=== PATIENT | female | born 1950 | race African-American/Black ===

== ENCOUNTER 2017-11-11 08:56 | Emergency (ER) | payer MEDICARE, MEDICAID ==
[~2017-11-11] VITALS: Ht 165.1 cm; Wt 122.5 kg
[~2017-11-11 08:56] MED LIST: ALL300T PO; ASPI81CH43; CAR3125T PO; CARI-316 PO; CARV6.2551; CLO01T PO; CLON0.1T; DIPH50LI PO; FERR325T83 PO; GLIM1TAB2 PO; INSUPOW; LEVO25TA9 PO; LIS5T PO; METF-370 PO
[2017-11-11] MEDS ORDERED: KETOROLAC TROMETH 60MG/2ML VIAL IM ONE (10:15)
[2017-11-11 13:00] VITALS: BP 153/95
== END 2017-11-11 12:59 | disposition home or self-care (01) ==
LOC: ER 08:58
DX: N28.1 Cyst of kidney, acquired (principal); M10.9 Gout, unspecified; I11.0 Hypertensive heart disease with heart failure; I50.9 Heart failure, unspecified; J45.909 Unspecified asthma, uncomplicated; E11.9 Type 2 diabetes mellitus without complications; E78.5 Hyperlipidemia, unspecified; Z90.49 Acquired absence of other specified parts of digestive tract; Z90.710 Acquired absence of both cervix and uterus; Z98.51 Tubal ligation status; Z79.4 Long term (current) use of insulin; Z79.82 Long term (current) use of aspirin; Z96.653 Presence of artificial knee joint, bilateral
CPT/HCPCS: 74176; 96372; 99284; J1885

== ENCOUNTER 2018-02-27 18:02 | Emergency (ER) | payer MEDICARE, MEDICAID ==
[~2018-02-27] VITALS: Ht 165.1 cm; Wt 122.5 kg
[2018-02-27 18:45] VITALS: BP 111/80
[2018-02-27] MEDS ORDERED: HYDROcodone-ACET 10/325MG TAB PO ONE (19:15)
== END 2018-02-27 19:49 | disposition home or self-care (01) ==
LOC: ER 18:09
DX: M25.561 Pain in right knee (principal); M25.532 Pain in left wrist; M25.531 Pain in right wrist; G89.29 Other chronic pain; I11.0 Hypertensive heart disease with heart failure; I50.9 Heart failure, unspecified; J45.909 Unspecified asthma, uncomplicated; E11.9 Type 2 diabetes mellitus without complications; E78.5 Hyperlipidemia, unspecified; Z90.710 Acquired absence of both cervix and uterus; Z98.51 Tubal ligation status; Z90.49 Acquired absence of other specified parts of digestive tract; Z79.82 Long term (current) use of aspirin; Z79.4 Long term (current) use of insulin
CPT/HCPCS: 73110; 73562

== ENCOUNTER 2019-02-15 22:28 | Emergency (ER) | payer MEDICAID, MEDICARE, OTHER ==
[~2019-02-15] VITALS: Ht 165.1 cm; Wt 117.9 kg
[~2019-02-15 22:28] MED LIST changes: -CARI-316 PO; +CARI350T22 PO
[2019-02-15 23:01] VITALS: BP 150/86
[2019-02-16] MEDS ORDERED: ACETAMINOPHEN/CODEINE#3 (300/30mg) TAB PO ONE (06:00)
== END 2019-02-16 06:58 | disposition home or self-care (01) ==
LOC: ER 22:28
DX: M25.531 Pain in right wrist (principal); M54.5 Low back pain; M54.6 Pain in thoracic spine; I11.0 Hypertensive heart disease with heart failure; I50.9 Heart failure, unspecified; E11.9 Type 2 diabetes mellitus without complications; R51 Headache; J45.909 Unspecified asthma, uncomplicated; E78.5 Hyperlipidemia, unspecified; Z90.49 Acquired absence of other specified parts of digestive tract; Z90.710 Acquired absence of both cervix and uterus; Z98.51 Tubal ligation status; Z79.82 Long term (current) use of aspirin; Z79.4 Long term (current) use of insulin; Z79.899 Other long term (current) drug therapy
CPT/HCPCS: 72128